=== PATIENT | female | born 1985 | race Caucasian/White ===

== ENCOUNTER → 2023-09-23 07:47 | Outpatient (REF) | payer BC, SELFPAY | LOC: PAVMRI 07:47 | PROVIDERS: ATTENDING PHYSICIAN Psychiatry & Neurology Neurology; FAMILY PHYSICIAN Family Medicine | DX: G95.0 Syringomyelia and syringobulbia (principal); R20.2 Paresthesia of skin | CPT/HCPCS: 72141; 72146 ==